=== PATIENT | female | born 1985 | race Caucasian/White ===

== ENCOUNTER 2017-01-24 13:30 | Inpatient (IN) | payer OTHER ==
[~2017-01-24 13:30] MED LIST: CITRIC ACID/SODIUM CITRATE 30 ML UNIT-DOSE CUP PO ONE; ELECTROLYTE-148 SOLN 1,000 ML IV ONE
[2017-01-24] MEDS ORDERED: ELECTROLYTE-148 SOLN 1,000 ML IV SCH (14:30)
[2017-01-24 15:20] VITALS: BMI 43.4
[2017-01-24] MEDS ORDERED: TUBERCULIN PPD 5 TU/0.1ML SYRINGE (IN PATIENT USE ONLY) ID ONE (17:00)
[2017-01-24] MEDS ORDERED: ONDANSETRON 4 MG/2 ML VIAL IVPB PRN (17:39)
[2017-01-24] MEDS ORDERED: morphine SULFATE/Preservative Free 0.5 MG/ML (1cc Syringe) EP ONE (17:39)
--- NOTE | 2017-01-24 17:53 | HP ---
Past Medical History - Primary Care Physician PCP:: Angelo Da Silva - Admission Chief Complaint: 39 weeks, previous c/s request of repeat c/s History of Present Illness: 31 yo f g 5 [id number] edc by sono 01/28/17 with previous hx of c/s ,,hx of GDM requesting repeat c/s, rba discused , discussed History Source: Patient Limitations to Obtaining History: No Limitations - Past Medical History ...: 5 ...Para: 1 ...Term: 1 ...: 0 ...Spon : 0 ...Induced : 2 ...Multiple Gestation: 0 ...EDC by Sono: 01/28/17 Additional OB History: hx of second trimester had cercleage with last Heme/Onc: Yes: Anemia - Past Surgical History Past Surgical History: Yes: Hx Myomectomy: No Hx Transabdominal Cerclage: No - Smoking History Smoking history: Never smoked Have you smoked in the past 12 months: No Aproximately how many cigarettes per day: 0 - Alcohol/Substance Use Hx Alcohol Use: No - Social History History of Recent Travel: No Home Medications - Allergies Allergies/Adverse Reactions: Allergies Allergy/AdvReac Type Severity Reaction Status Date / Time No Known Allergies Allergy Verified 01/24/17 14:18 - Home Medications Home Medications: Ambulatory Orders Vitamins (Sjr) - 1 tab PO DAILY 01/19/13 Review of Systems - Review of Systems Constitutional: reports: No Symptoms Eyes: reports: No Symptoms HENT: reports: No Symptoms Neck: reports: No Symptoms Cardiovascular: reports: No Symptoms Respiratory: reports: No Symptoms Gastrointestinal: reports: No Symptoms Genitourinary: reports: No Symptoms Breasts: reports: No Symptoms Reported Integumentary: reports: No Symptoms Neurological: reports: No Symptoms Endocrine: reports: No Symptoms Hematology/Lymphatic: reports: No Symptoms Psychiatric: reports: No Symptoms Physical Exam - Maternity Vital Signs: Vital Signs Temperature 98.2 F 01/24/17 17:08 Pulse Rate 88 01/24/17 17:08 Respiratory Rate 18 01/24/17 17:08 Blood Pressure 126/68 01/24/17 17:08 O2 Sat by Pulse Oximetry (%) Constitutional: Yes: Well Nourished, No Distress, Calm Eyes: Yes: WNL, Conjunctiva Clear, EOM Intact HENT: Yes: WNL, Atraumatic, Normocephalic Neck: Yes: WNL, Supple, Trachea Midline Cardiovascular: Yes: WNL, Regular Rate and Rhythm Breast(s): Yes: WNL - Abdominal Exam/OB Fundal Height: 40 Number of Fetuses: Single Presentation: Vertex Regularity: Irregular Intensity: Unaware Monitor Mode: External Heart Rate Location: [facility] Category: I Accelerations: Uniform Decelerations: None - Vaginal Exam/OB Vaginal Bleediing: No Amniotic Membrane Status: Intact Presentation: Vertex/Position Station: -3 - Physical Exam Edema: Yes Edema: LLE: 1+, RLE: 1+ Deep Tendon Reflex Grade: Normal +2 Hemorrhage Risk Assessment - Risk Factors Medium Risk Factors: Yes: Prior , uterine surgery,or multiple laparotomies Risk Score: 1 Risk Level: Medium Risk Problem List - Problems (1) 39 weeks gestation of Code(s): Z3A.39 - 39 WEEKS GESTATION OF (2) Gestational diabetes Code(s): O24.419 - GESTATIONAL DIABETES MELLITUS IN , UNSP CONTROL Qualifiers: Gestational diabetes mellitus control: diet-controlled Trimester: third trimester Qualified Code(s): O24.410 - Gestational diabetes mellitus in , diet controlled (3) Previous section complicating Code(s): O34.21 - MATERNAL CARE FOR SCAR FROM PREVIOUS * DO NOT USE * Assessment/Plan repeat c/s rba discussed
[2017-01-24] MEDS ORDERED: METHYLERGONOVINE MALEATE 0.2 MG/1 ML AMP IM PRN (18:41)
[2017-01-24] MEDS ORDERED: BENZOCAINE 28 GM HEMORRHOIDAL OINTMENT PR PRN (18:41)
[2017-01-24] MEDS ORDERED: BENZOCAINE 20% 57 GM BOTTLE TP PRN (18:41)
[2017-01-24] MEDS ORDERED: diphenhydrAMINE HCL 25 MG CAPSULE (FP) PO PRN (18:41)
[2017-01-24] MEDS ORDERED: WITCH HAZEL 50% (TUCKS) 40 PAD/JAR PAD TP PRN (18:41)
[2017-01-24] MEDS ORDERED: IBUPROFEN 600 MG TABLET (FP) PO PRN (18:41)
[2017-01-24] MEDS ORDERED: DEXTROSE 5%-LACTATED RINGERS 1,000 ML IV SCH (18:45)
[2017-01-24] MEDS ORDERED: D5W-LR W/ 20 UNITS OXYTOCIN 1,000 ML IV SCH (18:45)
[2017-01-24] MEDS ORDERED: OXYTOCIN 20 UNITS in 0.9% NS 1,000 ML IV SCH (18:45)
[2017-01-24] MEDS: IBUPROFEN 800 MG/8 ML IJ IVPB PRN (19:15)
[2017-01-25] MEDS ORDERED: CEFAZOLIN (PRE-DOCKED) 50 ML IVPB ONE ×2 (00:57→09:19)
[2017-01-25] MEDS: CEFAZOLIN 1 GM/D5W 50 ML IVPB SCH ×2 (01:05→09:29)
[2017-01-25] MEDS: IBUPROFEN 800 MG/8 ML IJ IVPB PRN ×2 (01:05→07:44)
--- NOTE | 2017-01-25 07:59 | PN ---
Progress Note (short form) - Note Progress Note: Post op day#1.S/P C section under spinal anesthesia with duramorph uneventful.Patient stable and does not c/o pain score of 6-7/10 for which she is on medication.No any anesthesia related problem.Patient DC from the anesthesia care.
[2017-01-25 08:49] LABS: BASOPHIL 0.1 % (0-2.0); EOSINOPHIL 0.9 % (0-4.5); MCH 26.7 pg (25.7-33.7); MCHC 33.8 g/dl (32.0-36.0); MEAN CELL VOLUME 79.2 fl (80-96); MEAN PLT VOLUME 8.9 fl (7.5-11.1); NEUTROPHILS 70.9 % (42.8-82.8); PLATELET COUNT 167 K/MM3 (134-434); RDW 13.4 % (11.6-15.6); WHITE BLOOD COUNT 13.5 K/mm3 (4.0-10.0)
[2017-01-25] MEDS: ENOXAPARIN NA (PORCINE) 40 MG/0.4 ML DISP.SYRIN SQ SCH (09:27)
[2017-01-25] MEDS: ACETAMINOPHEN 325 MG TABLET (FP) PO PRN ×3 (09:34→19:36)
[2017-01-25] MEDS: SIMETHICONE 80 MG TAB.CHEW (FP) PO PRN ×3 (09:34→19:36)
--- NOTE | 2017-01-25 10:02 | OP ---
DATE OF OPERATION: 01/24/2017 PREOPERATIVE DIAGNOSIS: , 39 weeks, previous section, gestational hypertension, request of repeat section. POSTOPERATIVE DIAGNOSIS: , 39 weeks, previous section, gestational hypertension, request of repeat section. PROCEDURE: Repeat low segment transverse section. SURGEON: Gris Da Silva MD CIGAR PACKER: KIM Cho ANESTHESIA: Spinal. ANESTHESIOLOGIST: Georges Burch MD ESTIMATED BLOOD LOSS: 500 mL. FINDING: Live baby girl, Apgars 7 and 9. OPERATION: The patient was taken to the operating room, had adequate spinal anesthesia. Abdomen and perineum were prepped and draped. Pfannenstiel abdominal skin incision was made over the previous incision. Abdominal wall was cut layer by layer until the peritoneum was exposed and incised. Upon entering the abdominal cavity, lower uterine segment was identified, and uterovesical fold of peritoneum was established, bladder was pushed down. A low transverse uterine incision was made. Incision extended laterally. Amniotic sac was entered. Clear fluid, head delivered. Nasopharynx was suctioned, and live baby girl was delivered from right occiput transverse position. Nasopharynx was suctioned. Cord clamped and cut. Placenta was delivered manually. Uterine cavity was cleaned of all remaining tissue. Uterine incision was closed using 2 layers, 1st layer with 0 Biosyn continuous suture, the 2nd layer with 0 Biosyn imbricating the 1st layer. Bladder flap was closed with 0 Biosyn continuous suture. Both tubes and ovaries were checked, were normal. No active bleeding was seen. All the lap pad count, sponge count, and instrument count were correct. Then, peritoneum was closed with 0 Biosyn continuous suture, muscles were brought together with interrupted sutures of 0 Biosyn, fascia was closed with 0 Biosyn continuous suture, subcutaneous fat with interrupted suture of 0 Biosyn, and the skin was closed with 4-0 Vicryl subcuticular continuous sutures. Patient tolerated the procedure well, left the OR in good condition. GRIS DA SILVA M.D. [id number]
--- NOTE | 2017-01-25 11:48 | PN ---
Progress Note (short form) - Note Progress Note: pod 1 doing well, no c/o voids ok, sitting on chair CBC, BMP 01/25/17 08:00 abdomen soft , no distension , no cva incision dry, clean no calf tenderness lochia mild plan ambulate, advance diet, pain management Problem List - Problems (1) 39 weeks gestation of Code(s): Z3A.39 - 39 WEEKS GESTATION OF (2) Gestational diabetes Code(s): O24.419 - GESTATIONAL DIABETES MELLITUS IN , UNSP CONTROL Qualifiers: Gestational diabetes mellitus control: diet-controlled Trimester: third trimester Qualified Code(s): O24.410 - Gestational diabetes mellitus in , diet controlled (3) Previous section complicating Code(s): O34.21 - MATERNAL CARE FOR SCAR FROM PREVIOUS * DO NOT USE *
[2017-01-25] MEDS: IBUPROFEN 600 MG TABLET (FP) PO PRN (14:36)
[2017-01-25] MEDS ORDERED: BISACODYL 10 MG SUPP.RECT RC PRN (18:41)
[2017-01-25] MEDS: oxyCODONE HCL 5 MG TABLET PO PRN (19:37)
[2017-01-26] MEDS: SIMETHICONE 80 MG TAB.CHEW (FP) PO PRN ×5 (00:01→20:26)
[2017-01-26] MEDS: ACETAMINOPHEN 325 MG TABLET (FP) PO PRN ×5 (00:02→20:26)
[2017-01-26] MEDS: oxyCODONE HCL 5 MG TABLET PO PRN ×5 (00:02→20:24)
[2017-01-26] MEDS: ENOXAPARIN NA (PORCINE) 40 MG/0.4 ML DISP.SYRIN SQ SCH (10:43)
[2017-01-26] MEDS: IBUPROFEN 600 MG TABLET (FP) PO PRN ×2 (12:35→20:28)
--- NOTE | 2017-01-26 15:35 | PN ---
Post Progress Note - Subjective Subjective: C/o incisional pain Post Day: 2 Type of Delivery: Repeat C/S Vital Signs: Vital Signs Temperature 98.5 F 01/26/17 13:47 Pulse Rate 93 H 01/26/17 13:47 Respiratory Rate 20 01/26/17 13:47 Blood Pressure 123/61 01/26/17 13:47 O2 Sat by Pulse Oximetry (%) 99 01/24/17 20:00 Breast Exam: Yes: Soft Uterus: Yes: Fundus below umbilicus Incision: Yes: Sutures intact Abdomen/GI: Yes: Abdomen soft, Passing flatus, Tolerating PO Lochia: Yes: Rubra Lochia, amount: Small Extremities: Yes: Calves non-tender, Edema Perineum: Yes: Intact Activity: Ambulating - Labs Labs: CBC WBC 13.5 K/mm3 (4.0-10.0) H 01/25/17 08:00 RBC 4.21 M/mm3 (3.60-5.2) 01/25/17 08:00 Hgb 11.3 GM/dL (10.7-15.3) 01/25/17 08:00 Hct 33.3 % (32.4-45.2) 01/25/17 08:00 MCV 79.2 fl (80-96) L 01/25/17 08:00 MCHC 33.8 g/dl (32.0-36.0) 01/25/17 08:00 RDW 13.4 % (11.6-15.6) 01/25/17 08:00 Plt Count 167 K/MM3 (134-434) 01/25/17 08:00 MPV 8.9 fl (7.5-11.1) 01/25/17 08:00 Neutrophils % 70.9 % (42.8-82.8) 01/25/17 08:00 Lymphocytes % 18.2 % (8-40) 01/25/17 08:00 Monocytes % 9.9 % (3.8-10.2) 01/25/17 08:00 Eosinophils % 0.9 % (0-4.5) 01/25/17 08:00 Basophils % 0.1 % (0-2.0) 01/25/17 08:00 Assessment/Plan 31yo P2 s/p repeat LT C/S, doing well stable, afebrile. care instructions reviewed. Continue routine postop care. Ambulation encouraged.
[2017-01-26] MEDS ORDERED: SENNOSIDES/DOCUSATE COMBO (SENNA PLUS) TABLET (UD) PO PRN (22:00)
[2017-01-27] MEDS: SIMETHICONE 80 MG TAB.CHEW (FP) PO PRN ×4 (03:23→21:32)
[2017-01-27] MEDS: oxyCODONE HCL 5 MG TABLET PO PRN (03:23)
[2017-01-27] MEDS: ACETAMINOPHEN 325 MG TABLET (FP) PO PRN ×4 (03:23→21:32)
[2017-01-27] MEDS: IBUPROFEN 600 MG TABLET (FP) PO PRN ×4 (03:24→21:32)
[2017-01-27 07:10] LABS: BASOPHIL 0.1 % (0-2.0); MCH 26.5 pg (25.7-33.7); MCHC 33.7 g/dl (32.0-36.0); MEAN CELL VOLUME 78.7 fl (80-96); MEAN PLT VOLUME 8.8 fl (7.5-11.1); NEUTROPHILS 67.4 % (42.8-82.8); PLATELET COUNT 205 K/MM3 (134-434); RDW 13.7 % (11.6-15.6); WHITE BLOOD COUNT 13.6 K/mm3 (4.0-10.0)
--- NOTE | 2017-01-27 08:32 | PN ---
Post Progress Note - Subjective Subjective: C/o constipation Post Day: 3 Type of Delivery: Repeat C/S Vital Signs: Vital Signs Temperature 97.9 F 01/26/17 21:32 Pulse Rate 78 01/26/17 21:32 Respiratory Rate 14 01/26/17 21:32 Blood Pressure 122/66 01/26/17 21:32 O2 Sat by Pulse Oximetry (%) 98 01/26/17 21:32 Breast Exam: Yes: Soft Uterus: Yes: Fundus Firm, Fundus below umbilicus Incision: Yes: Sutures intact Abdomen/GI: Yes: Abdomen soft, Passing flatus, Tolerating PO Lochia: Yes: Rubra Lochia, amount: Small Extremities: Yes: Calves non-tender, Edema Perineum: Yes: Intact Activity: Ambulating - Labs Labs: CBC WBC 13.6 K/mm3 (4.0-10.0) H 01/27/17 06:00 RBC 3.95 M/mm3 (3.60-5.2) 01/27/17 06:00 Hgb 10.5 GM/dL (10.7-15.3) L 01/27/17 06:00 Hct 31.1 % (32.4-45.2) L 01/27/17 06:00 MCV 78.7 fl (80-96) L 01/27/17 06:00 MCHC 33.7 g/dl (32.0-36.0) 01/27/17 06:00 RDW 13.7 % (11.6-15.6) 01/27/17 06:00 Plt Count 205 K/MM3 (134-434) D 01/27/17 06:00 MPV 8.8 fl (7.5-11.1) 01/27/17 06:00 Neutrophils % 67.4 % (42.8-82.8) 01/27/17 06:00 Lymphocytes % 19.8 % (8-40) 01/27/17 06:00 Monocytes % 9.7 % (3.8-10.2) 01/27/17 06:00 Eosinophils % 3.0 % (0-4.5) D 01/27/17 06:00 Basophils % 0.1 % (0-2.0) 01/27/17 06:00 Assessment/Plan 31yo P2 s/p repeat LT C/S, doing well stable, afebrile. care instructions reviewed. Continue routine postop care. Ambulation encouraged. Stool softeners ordered.
[2017-01-27] MEDS: ENOXAPARIN NA (PORCINE) 40 MG/0.4 ML DISP.SYRIN SQ SCH (10:22)
--- NOTE | 2017-01-27 14:01 | PATH ---
Surgical Pathology Report Patient Name: SRIDHAR BERNAL [facility]. Rec. #: [id number] /Age/Gender: 1985 (Age: 31) / F Account: [id number] Location: [facility] OBS/[employer] Taken: 01/24/2017 Received: 01/25/2017 Reported: 01/27/2017 Physicians: Angelo Da Silva M.D. Specimen(s) Received PLACENTA Clinical History 39.3 weeks Final Diagnosis PLACENTA, DELIVERY: FOCALLY DISRUPTED THIRD TRIMESTER PLACENTA WITH THREE VESSEL UMBILICAL CORD AND UNREMARKABLE PLACENTAL MEMBRANES. Electronically Signed Levon Mckeon M.D. Gross Description The specimen is received fresh labeled placenta and is a 520 gram, 23.0 x 16.0 x 1.8 cm. placenta with attached membranes and umbilical cord. The attached membranes are pascal, translucent with focal opacities and insert marginally. The umbilical cord measures 41 cm. in length and averages 1.1 cm. in diameter. The cord inserts eccentrically, 3 cm. to the nearest margin. No true knots or strictures are identified. Cut surface of the umbilical cord reveals 3 vessels. The surface is hein-blue with minimal fibrin deposition and appropriate caliber vessels. The maternal surface is red-brown with focal defects. Sectioning reveals red-brown, spongy parenchyma. No lesions are identified. Salesperson [employer] sections are submitted in three cassettes as follows: 1- membrane rolls and umbilical cord; 2-3- full thickness sections of placenta. 01/26/2017 [facility]01/26/2017
--- NOTE | 2017-01-28 07:39 | PN ---
Progress Note (short form) - Note Progress Note: pod 4 afebrile, doing ell, ambulating CBC, BMP 01/27/17 06:00 Last Vital Signs Temp Pulse Resp BP Pulse Ox 97.7 F 81 18 115/66 98 01/27/17 22:00 01/27/17 22:00 01/27/17 22:00 01/27/17 22:00 01/27/17 09:00 abdomen soft, no distension, no cva incision dry, clean, no calf tenderness , no edema plan d/c home flow up 1 week, instruction given Problem List - Problems (1) 39 weeks gestation of Code(s): Z3A.39 - 39 WEEKS GESTATION OF (2) Gestational diabetes Code(s): O24.419 - GESTATIONAL DIABETES MELLITUS IN , UNSP CONTROL Qualifiers: Gestational diabetes mellitus control: diet-controlled Trimester: third trimester Qualified Code(s): O24.410 - Gestational diabetes mellitus in , diet controlled (3) Previous section complicating Code(s): O34.21 - MATERNAL CARE FOR SCAR FROM PREVIOUS * DO NOT USE *
[2017-01-28 07:53] VITALS: BP 119/59; PULSE 78; TEMP 98.8
[2017-01-28] MEDS: SIMETHICONE 80 MG TAB.CHEW (FP) PO PRN (09:36)
[2017-01-28] MEDS: ENOXAPARIN NA (PORCINE) 40 MG/0.4 ML DISP.SYRIN SQ SCH (09:36)
[2017-01-28] MEDS: ACETAMINOPHEN 325 MG TABLET (FP) PO PRN (09:36)
[2017-01-28] MEDS: IBUPROFEN 600 MG TABLET (FP) PO PRN (09:37)
== END 2017-01-28 12:00 | disposition home or self-care (01) | DRG 540 ==
LOC: JLDR 13:30 → J3W 20:37
PROVIDERS: ADMIT Obstetrics & Gynecology; ATTEND Obstetrics & Gynecology
PROC: 10D00Z1 Extraction of Products of Conception, Low, Open Approach (ICD-10-PCS; principal; 2017-01-24)
DX: O34.211 Maternal care for low transverse scar from previous cesarean delivery (principal); O24.420 Gestational diabetes mellitus in childbirth, diet controlled; Z3A.39 39 weeks gestation of pregnancy; Z37.0 Single live birth
CPT/HCPCS: 36415; 85025; 88307-TC

== ENCOUNTER 2018-04-08 20:59 | Inpatient (IN) | payer OTHER ==
[2018-04-08] MEDS ORDERED: SODIUM CHLORIDE 0.9% 500 ML INFUS.BAG IV ONE (21:25)
--- NOTE | 2018-04-08 21:25 | PDOC ---
Attending Attestation - Resident Resident Name: FredSilvina - ED Attending Attestation I have performed the following: I have examined & evaluated the patient, The case was reviewed & discussed with the resident, I agree w/resident's findings & plan - HPI HPI: 04/08/18 21:21 Pt comes with 315 blood glc and headache. She has no other complaints. Patient is 7 mos . Pt has never had gestational diabetes with her other pregnancies. (1 stillborn) - Physicial Exam PE: 04/08/18 21:23 Agree with resident exam - Medical Decision Making 04/08/18 21:23 IV hydration; CBC, comp and acetone will be sent. Pt will be sent up to L+D for eval of the fetus. 04/08/18 22:04 Pt's WBC is 21; we will call Dr. Da Silva and discuss option to admit for observation. 04/09/18 02:54 Pt was admitted to [facility] Dr. Blount who then transferred her to [facility] for higher level of care.
--- NOTE | 2018-04-08 21:27 | PDOC ---
History of Present Illness - General Chief Complaint: Blood Sugar Problem Stated Complaint: HIGH BLOOD SUGAR Time Seen by Provider: 04/08/18 21:07 - History of Present Illness Initial Comments: This is a 32 yo (two C-sections who are alive, one stillborn) female who is 7 mo (this c/b placenta previa and gestational DM as diagnosed by high-risk [facility] [employer] [employer] Dr. Delvalle three days ago, regular [facility] this has been Dr. Forrest) who presents with headache, right lower abdominal pressure which is mild, and BG 315 despite taking her insulin regimen. She notes having been taking 30 units with breakfast, and 20 units with dinner for the past the past 3 days since starting insulin. She has been having urinary frequency but this is not different from earlier this . She denies any fever, chills, nausea, vomiting, diarrhea, chest pain, SOB, leg swelling, lightheadedness, vaginal bleeding or discharge, or other symptoms. Past History - Past Medical History Allergies/Adverse Reactions: Allergies Allergy/AdvReac Type Severity Reaction Status Date / Time No Known Allergies Allergy Verified 04/08/18 21:03 Home Medications: Ambulatory Orders Vitamins (Sjr) - 1 tab PO DAILY 01/19/13 Asthma: No Cancer: No Cardiac Disorders: No Diabetes: No HTN: No Seizures: No Thyroid Disease: No - Surgical History Cholecystectomy: Yes - Suicide/Smoking/Psychosocial Hx Smoking Status: No Smoking History: Never smoked Have you smoked in the past 12 months: No Number of Cigarettes Smoked Daily: 0 Information on smoking cessation initiated: No Hx Alcohol Use: No Drug/Substance Use Hx: No Substance Use Type: None Hx Substance Use Treatment: No Review of Systems - Review of Systems Able to Perform ROS?: Yes Constitutional: No: Chills, Fever, Unexplained wgt Loss HEENTM: No: Nose Congestion, Throat Pain Respiratory: No: Cough, Shortness of Breath Cardiac (ROS): No: Chest Pain, Palpitations ABD/GI: No: Constipated, Diarrhea, Nausea, Vomiting : Yes: Frequency. No: Burning, Dysuria, Discharge Musculoskeletal: No: Back Pain, Neck Pain Integumentary: No: Bruising, Rash Neurological: Yes: Headache. No: Numbness, Tingling, Weakness, Dizziness Endocrine: No: Unexplained Weight Gain, Unexplained Weight Loss *Physical Exam - Vital Signs Last Vital Signs Temp Pulse Resp BP Pulse Ox 97.6 F 112 H 18 97/72 99 04/08/18 21:07 04/08/18 21:07 04/08/18 21:07 04/08/18 21:07 04/08/18 21:07 - Physical Exam General Appearance: Yes: Nourished, Other (nontoxic, well, comfortable appearing female, answering questions appropriately). No: Apparent Distress HEENT: positive: EOMI, CAMILA, Normal Voice, Hearing Grossly Normal. negative: Scleral Icterus (R), Scleral Icterus (L), Nasal Congestion Neck: positive: Trachea midline, Supple. negative: Tender, Rigid Respiratory/Chest: positive: Lungs Clear, Normal Breath Sounds. negative: Respiratory Distress, Crackles, Rhonchi, Stridor, Wheezing Cardiovascular: positive: Regular Rhythm, S1, S2, Tachycardia. negative: Edema , JVD, Murmur Gastrointestinal/Abdominal: positive: Normal Bowel Sounds, Tender (minimal RLQ ttp), Soft. negative: Organomegaly, Pulsatile Mass, Guarding Musculoskeletal: positive: Normal Inspection. negative: Decreased Range of Motion, Vertebral Tenderness Extremity: positive: Normal Capillary Refill, Normal Inspection, Normal Range of Motion. negative: Tender, Cyanosis, Pedal Edema Integumentary: positive: Normal Color, Dry, Warm. negative: Erythema, Rash, Bruising Neurologic: positive: practice nurse II-XII NML intact, Fully Oriented, Alert, Normal Mood/ Affect, Normal Response, Motor Strength 5/5. negative: EOM Palsy, Facial Droop , Numbness, Sensory Deficit, Confused, Disoriented ED Treatment Course - LABORATORY CBC & Chemistry Diagram: 04/08/18 21:47 04/08/18 21:47 Medical Decision Making - Medical Decision Making Adult female patient p/w elevated BG, headache, abdominal pain in 7 mo . Initial Vital Signs Temp Pulse Resp BP Pulse Ox 97.6 F 112 H 18 97/72 99 04/08/18 21:07 04/08/18 21:07 04/08/18 21:07 04/08/18 21:07 04/08/18 21:07 Repeat blood pressure 118/66 at time of exam. Exam: Well appearing adult female, obviously gravis abdomen, minimal ttp RLQ without peritoneal signs. DDX IBNLT: UTI/pyelonephritis, renal colic, ovarian torsion, ovarian cyst, ectopic , PID/TOA, cervicitis, endometritis, malignancy, hernia, cholecystitis, pancreatitis, gastritis, PUD, appendicitis, diverticulitis wwo abscess or perforation, colitis, SBO, bowel ischemia, bowel perforation, constipation, musculoskeletal, dysmenorrhea, endometriosis, fibroids, etc. W/U ordered: CBCD CMP UA UCx Acetone Laboratory Tests 04/08/18 04/08/18 21:47 21:47 WBC 21.5 H D RBC 3.94 Hgb 10.1 L Hct 29.1 L MCV 73.9 L MCH 25.8 MCHC 34.8 RDW 13.9 Plt Count 176 MPV 8.8 Neutrophils % No Result Required. Lymphocytes % No Result Required. Sodium 135 L Potassium 4.0 Chloride 104 Carbon Dioxide 22 Anion Gap 9 BUN 11 Creatinine 0.6 Creat Clearance w eGFR > 60 Random Glucose 323 H* Calcium 8.1 L Total Bilirubin 0.2 D AST 25 ALT 36 Alkaline Phosphatase 135 H Total Protein 6.2 L Albumin 2.5 L W/U Ordered: ABG. Reassessment: Patient c/o mild headache and continued mild RLQ pain. Spoke with Dr. Blount (monitoring coordinator with [facility]); in agreement patient will go to L& D once BG stabilized. Repeat VS: 04/08/18 23:[address] Blount who is happy to admit the patient to himself; wants to ensure this plan works for [facility]. Page sent to [facility] attending and resident on overnight regarding admission planning. 04/09/18 00:02 Spoke with Conchis; recommendation is that the patient be admitted with Dr. Blount as primary. Medicine discussing and will likely consult for management of DKA and other medical problems. ADMIT The patients symptoms persist despite ED treatments. The patient is unsafe for discharge at this time. They require further hospital observation, workup, and treatment. Microblog sent to [facility] for admission. Spoke with Conchis, in agreement patient to be admitted to: XXXX Decision to Admit order placed to [facility] covering attending. 04/09/18 00:06 04/09/18 00:06 *DC/Admit/Observation/Transfer Diagnosis at time of Disposition: DKA (diabetic ketoacidoses) Qualifiers: Diabetes mellitus type: other specified (including MARY) Diabetes mellitus complication detail: without coma Qualified Code(s): E13.10 - Other specified diabetes mellitus with ketoacidosis without coma Qualifiers: Weeks of gestation: 30 weeks Qualified Code(s): Z3A.30 - 30 weeks gestation of Abdominal pain Qualifiers: Abdominal location: right lower quadrant Qualified Code(s): R10.31 - Right lower quadrant pain Headache Qualifiers: Headache type: unspecified Headache chronicity pattern: unspecified pattern Intractability: not intractable Qualified Code(s): R51 - Headache - Discharge Dispostion Condition at time of disposition: Guarded Decision to Admit order: Yes - Referrals Referrals: Kervin Dash MD [Primary Care Provider] - - Patient Instructions - Post Discharge Activity
[2018-04-08 21:53] LABS: HEMATOCRIT 29.1 % (32.4-45.2); HEMOGLOBIN 10.1 GM/dL (10.7-15.3); MCH 25.8 pg (25.7-33.7); MCHC 34.8 g/dl (32.0-36.0); MEAN CELL VOLUME 73.9 fl (80-96); MEAN PLT VOLUME 8.8 fl (7.5-11.1); PLATELET COUNT 176 K/MM3 (134-434); RBC 3.94 M/mm3 (3.60-5.2); RDW 13.9 % (11.6-15.6); WHITE BLOOD COUNT 21.5 K/mm3 (4.0-10.0)
[2018-04-08 22:23] LABS: ALBUMIN 2.5 g/dl (3.4-5.0); ANION GAP 9 (8-16); BILIRUBIN,TOTAL 0.2 mg/dL (0.2-1.0); BLOOD UREA NITROGEN 11 mg/dL (7-18); CALCIUM 8.1 mg/dL (8.5-10.1); CHLORIDE 104 mmol/L (98-107); CO2 22 mmol/L (21-32); CREATININE 0.6 mg/dL (0.55-1.02); SGOT/AST 25 U/L (15-37); SGPT/ALT 36 U/L (12-78); SODIUM 135 mmol/L (136-145); TOT PROT 6.2 g/dl (6.4-8.2)
[2018-04-08 22:24] LABS: ALK PHOS 135 U/L (45-117)
[2018-04-08 22:25] LABS: GLUCOSE,RANDOM 323 mg/dL (74-106)
[2018-04-08 22:29] LABS: URINE APPEARANCE CLEAR; URINE BILIRUBIN NEGATIVE (<2.0 mg/dL); URINE COLOR STRAW; URINE GLUCOSE (UA) 3+ (NEGATIVE); URINE KETONE TRACE (NEGATIVE); URINE LEUK ESTERASE NEGATIVE (NEGATIVE); URINE NITRITE NEGATIVE (NEGATIVE); URINE PROTEIN NEGATIVE (NEGATIVE); URINE UROBILINOGEN NEGATIVE mg/dL (0.2-1.0)
[2018-04-08 22:35] LABS: ACETONE SERUM POSITIVE SMALL 1+ (NEGATIVE)
[2018-04-08 22:46] LABS: ANISOCYTOSIS 1+; PLATELET ESTIMATE ADEQUATE
[2018-04-08] MEDS ORDERED: Insulin (LOG) Aspart 100 UNITS/ML VIAL SQ ONE (23:30)
[2018-04-08] MEDS ORDERED: INSULIN (NOVOLOG) ASPART 100 UNITS/ML 10ML VIAL SQ ONE (23:30)
[2018-04-09] MEDS ORDERED: INSULIN (NOVOLOG) ASPART 100 UNITS/ML 10ML VIAL SQ ONE ×3 (00:30→23:30)
--- NOTE | 2018-04-09 01:09 | HP ---
Past Medical History - Primary Care Physician PCP:: Anastacio Blount - Admission Chief Complaint: 32yo P2 with at EGA 30w4 admitted to [facility] from ER with c/o headache, lower abdominal pressure, and fingerstick glucose at home 315 that was 367 in ER. History of Present Illness: Pt was recently diagnosed with GDM and started on insulin. She was subsequently diagnosed with a short cervix 1.7cm and anterior marginal placenta previa. The pt was given steroids 04/06/2018 and 04/07/2018. She has been using insulin at home. No contractions, good movement, no contractions, no leakage of fluids. Prior at 6 mo with PPROM and demis 2012 Primary C/S at term for breech 2016 Repeat C/S at term, GDM. History Source: Patient, Medical Record Limitations to Obtaining History: No Limitations - Past Medical History CLINICAL TRANSFORMATION SPECIALIST: No: Alzheimer's, CVA, Dementia, Migraine, Multiple Sclerosis, Peripheral Neuropathy, Parkinson's, Seizure, Syncope, TIA, Vertigo, Other Cardiovascular: No: AFIB, Aneurysm, Aortic Insufficiency, Aortic Stenosis, CAD, CHF, Deep Vein Thrombosis, HTN, Hyperlipdemia, MD, Mitral Insufficiency, Mitral Stenosis, Murmur, Pulmonary Hypertension, Other Pulmonary: No: Asthma, Bronchitis, Cancer, COPD, O2 Dependent, Pneumonia, Previously Intubated, Pulmonary Embolus, Pulmonary Fibrosis, Sleep Apnea, Other Gastrointestinal: No: Ascites, Cancer, Constipation, Crohn's Disease, Diverticulitis, Diverticulosis, Esophageal Varices, Gastritis, GERD, GI Bleed, Hemorrhoids, Hiatal Hernia, Inflamatory Bowel Disease, Irritable Bowel Disease, Pancreatitis, Peptic Ulcer Disease, Ulcerative Colitis, Other Hepatobiliary: No: Cirrhosis, Cholelithiasis, Cholecystitis, Choledocholithiasis , Hepatitis A, Hepatitis B, Hepatitis C, Other Renal/: No: Renal Failure, Renal Inusuff, BPH, Cancer, Hematuria, Hemodialysis , Neurogenic Bladder, Renal Calculi, UTI, Other Reproductive: No: Ectopic , Endometriosis, Fibroids, PID, Polycystic Ovary Syndrome, Postmenopausal, Other ...Term: 2 (C/ S x 1 for breech, repeat C/S x 1) ...: 1 ( at 6 mo, after PPROM. demise) ...EDC by Sono: 06/13/18 Heme/Onc: Yes: Anemia Infectious Disease: No: AIDS, C-Diff, Herpes Zoster, HIV, MRSA, STD's, Tuberculosis, VREF, Other Psych: No: Addictions, Anxiety, Bipolar, Depression, Panic, Psychosis, Schizophrenia, Other Musculoskeletal: No: Bursitis, Chronic low back pain, Hemiparesis, Hemiplegia, Osteoarthritis, Paraplegia, Other Rheumatology: No: Fibromyalgia, Gout, Lupus, Rheumatoid Arthritis, Sarcoidosis, Vasculitis, Other ENT: No: Allergic Rhinitis, Sinusitis, Other Endocrine: Yes: Hyperthyroidism (not on meds) Dermatology: No: Basal Cell, Cellulitis, Eczema, Melanoma, Psoriasis, Squamous Cell, Other - Past Surgical History Past Surgical History: Yes: (x 2) Hx Myomectomy: No Hx Transabdominal Cerclage: No - Smoking History Smoking history: Never smoked Have you smoked in the past 12 months: No Aproximately how many cigarettes per day: 0 - Alcohol/Substance Use Hx Alcohol Use: No History of Substance Use: reports: None - Social History Usual Living Arrangement: Yes: With Child ADL: Independent History of Recent Travel: No Home Medications - Allergies Allergies/Adverse Reactions: Allergies Allergy/AdvReac Type Severity Reaction Status Date / Time No Known Allergies Allergy Verified 04/08/18 21:03 - Home Medications Home Medications: Ambulatory Orders Vitamins (Sjr) - 1 tab PO DAILY 01/19/13 Review of Systems - Review of Systems Constitutional: reports: Lethargy Eyes: reports: No Symptoms HENT: reports: No Symptoms Neck: reports: No Symptoms Cardiovascular: reports: No Symptoms Respiratory: reports: No Symptoms Gastrointestinal: reports: No Symptoms Genitourinary: reports: Frequency Breasts: reports: No Symptoms Reported Musculoskeletal: reports: No Symptoms Integumentary: reports: No Symptoms Neurological: reports: No Symptoms Endocrine: reports: No Symptoms Hematology/Lymphatic: reports: No Symptoms Psychiatric: reports: No Symptoms Pain Intensity: 0 Physical Exam-ADON Vital Signs: Vital Signs Temperature 97.8 F 04/08/18 22:25 Pulse Rate 108 H 04/08/18 22:25 Respiratory Rate 20 04/08/18 22:25 Blood Pressure 118/61 04/08/18 22:25 O2 Sat by Pulse Oximetry (%) 99 04/08/18 21:07 Constitutional: Yes: Well Nourished, No Distress, Calm Eyes: Yes: WNL, Conjunctiva Clear HENT: Yes: WNL, Atraumatic, Normocephalic Neck: Yes: WNL, Supple, Trachea Midline Cardiovascular: Yes: WNL, Regular Rate and Rhythm Respiratory: Yes: WNL, Regular, CTA Bilaterally Gastrointestinal: Yes: WNL, Normal Bowel Sounds, Soft ...Rectal Exam: Yes: Deferred Renal/: Yes: WNL Pelvis: Yes: WNL External Genitalia: Yes: Normal Internal Exam Deferred: Yes Breast(s): Yes: WNL Musculoskeletal: Yes: WNL Extremities: Yes: WNL Edema: No Integumentary: Yes: WNL Neurological: Yes: WNL, Alert, Oriented ...Motor Strength: WNL Psychiatric: Yes: WNL, Alert, Oriented Labs: CBC, BMP 04/08/18 21:47 04/08/18 21:47 Assessment/Plan 32yo P2 with mild DKA and at EGA 30w4d. The pt is stable and her electrolyte disturbance is minimal. The heart tracing with baseline 135 and minimal variability, w/o decels, or accels. Fetus does not require intervention. Pt is not in labor, no bleeding. Plan to continue SQ insulin. Transfer [facility] Pt will not be given IV insulin to avoid a quick drop in glucose, as she is stable.
[2018-04-09] MEDS ORDERED: Insulin (LOG) Aspart 100 UNITS/ML VIAL SQ ONE (01:30)
[2018-04-09 04:18] VITALS: BP 124/59; PULSE 102; TEMP 97.7; BMI 41.2
== END 2018-04-09 02:10 | disposition short-term general hospital (02) | DRG 566 ==
LOC: JER 20:59 → JLDR 23:00
PROVIDERS: ADMIT Obstetrics & Gynecology; ATTEND Obstetrics & Gynecology
DX: O24.419 Gestational diabetes mellitus in pregnancy, unspecified control (principal); O26.873 Cervical shortening, third trimester; O44.23 Partial placenta previa NOS or without hemorrhage, third trimester; Z3A.30 30 weeks gestation of pregnancy
CPT/HCPCS: 36415; 59025; 76815; 80053; 81003; 82009; 82962; 85025; 87086; 99281-25